=== PATIENT | female | born 1970 | race Caucasian/White ===

== ENCOUNTER 2017-04-23 12:24 | Emergency (ER) | payer OTHER | END 2017-04-23 14:30 | disposition home or self-care (01) | LOC: ER1 12:24 | DX: L02.212 Cutaneous abscess of back [any part, except buttock and flank] (principal); L03.312 Cellulitis of back [any part except buttock and flank]; Z90.49 Acquired absence of other specified parts of digestive tract | CPT/HCPCS: 10061; 87070; 87077; 87186; 87205; 99283 ==